=== PATIENT | female | born 1975 | race Caucasian/White ===

== ENCOUNTER 2018-12-26 16:41 | Emergency (ER) | payer SELFPAY ==
[2018-12-26 17:38] LABS: #Basophils 0.1 thou/uL (0.0-0.2); #Eosinphils 0.1 thou/uL (0.0-0.7); #Lymphocytes 2.9 thou/uL (1.20-3.40); #Monocytes 0.5 thou/uL (0.11-0.59); #Neutrophils 3.2 thou/uL (1.40-6.50); %Basophils 0.9 % (0.0-1.0); %Eosinophils 1.9 % (0.0-10.0); %Lymphocytes 42.9 % (21.0-51.0); %Monocytes 7.3 % (0.0-10.0); %Neutrophils 47.1 % (42.0-75.0); Hemoglobin 7.5 g/dL (12.0-16.0); Mean Corpuscular Hemoglobin 19.4 pg (27.0-31.0); Mean Corpuscular Volume 66.8 fL (78.0-98.0); Platelet Count 247 thou/uL (130-400); RBC Distribution Width 18.2 % (11.5-14.5); Red Blood Cell (RBC) Count 3.86 mill/uL (4.20-5.40); White Blood Cell (WBC) Count 6.7 thou/uL (4.8-10.8)
[2018-12-26 17:55] LABS: ALT (SGPT) 8 U/L (8-55); AST (SGOT) 15 U/L (5-34); Albumin 3.6 g/dL (3.5-5.0); Alkaline Phosphatase 77 U/L (40-150); Anion Gap 10 mmol/L (10-20); BUN (Urea Nitrogen) 14 mg/dL (7.0-18.7); Bilirubin, Total 0.4 mg/dL (0.2-1.2); Calc. Creatinine Clearance 0 mL/min (70-130); Calcium 8.9 mg/dL (7.8-10.44); Carbon Dioxide 26 mmol/L (22-29); Chloride 103 mmol/L (98-107); Estimated GFR-MDRD 71; Globulin 3.1 g/dL (2.4-3.5); Glucose 119 mg/dL (70-105); Potassium 3.3 mmol/L (3.5-5.1); Protein, Total 6.7 g/dL (6.0-8.3); Sodium 136 mmol/L (136-145)
[2018-12-26 18:02] LABS: Anisocytosis SLIGHT = 6-15 cells (100X) (0-5/hpf); Hypochromia MODERATE=16-30 cells (100X) (0-5/hpf); MDiff Complete? YES; Microcytosis SLIGHT = 6-15 cells (100X) (0-5/hpf); Ovalocytes SLIGHT = 2-5 cells (100X) (0-1/hpf); Platelet Morphology Comment Appears Adequate; Polychromasia SLIGHT = 2-3 cells (100X) (0-2/hpf); Reflex for Review?? YES; Stomatocytes SLIGHT = 2-5 cells (100X) (0-1/hpf); Target Cells SLIGHT = 2-5 cells (100X) (0-1/hpf)
[2018-12-26 23:06] LABS: Reticulocyte Count 1.7 % (0.5-1.5)
[2018-12-26 23:27] LABS: Iron 11 ug/dL (50-170); Iron Binding Capacity, Total 424 mcg/dL (265-497); Iron Binding Capacity, Total 426 mcg/dL (265-497)
[2018-12-27] LABS: Folate (Folic Acid) 5.6 ng/mL (7.0-31.4)
== END 2018-12-26 22:59 | disposition home or self-care (01) ==
LOC: ERS 16:41
DX: D50.9 Iron deficiency anemia, unspecified (principal); I25.2 Old myocardial infarction; I10 Essential (primary) hypertension; Z79.899 Other long term (current) drug therapy
CPT/HCPCS: 36415; 80053; 82607; 82728; 82746; 83540; 83550; 85025; 85046; 85060; 86850; 86900; 86901; 99283

== ENCOUNTER 2020-05-06 13:06 | Day surgery (SDC) | payer OTHER ==
[~2020-05-06 13:06] MED LIST: Ferumoxytol (NON ERSD) 510 MG in Sodium Chloride 0.9% 150 ML IVPB SCH
[2020-05-06] MEDS ORDERED: Sodium Chloride 0.9% 20 ML ONE (13:20)
== END 2020-05-06 15:17 | disposition home or self-care (01) ==
LOC: ONC/OP 13:06
PROVIDERS: ATTEND Internal Medicine Hematology & Oncology
DX: D50.8 Other iron deficiency anemias (principal)
CPT/HCPCS: 96365; J3490; Q0138

== ENCOUNTER 2020-05-13 13:15 | Day surgery (SDC) | payer OTHER ==
[2020-05-13] MEDS ORDERED: Sodium Chloride 0.9% 20 ML ONE (13:27)
[2020-05-13 13:44] VITALS: BP 151/71; TEMP 98.2
== END 2020-05-13 14:37 | disposition home or self-care (01) ==
LOC: ONC/OP 13:15
PROVIDERS: ATTEND Internal Medicine Hematology & Oncology
DX: D50.8 Other iron deficiency anemias (principal)
CPT/HCPCS: 96365; J3490; Q0138